=== PATIENT | male | born 1990 | race Caucasian/White ===

== ENCOUNTER 2017-05-30 09:03 | Emergency (ER) | payer SELFPAY ==
[~2017-05-30] VITALS: Ht 188 cm; Wt 100.0 kg
[~2017-05-30 09:03] MED LIST: (None)3.5 GM OS; BACTRIM DS1 TAB PO; COLCHICINE0.6 M2 PO; DOXYCYCL HYC100 M4 PO; FLEXERIL OR; GENTAMICIN SULF5 ML OS; INDOCIN SR75 MG PO; INDOCIN25 MG PO; INDOCIN50 MG/CAP PO; LORTAB 10 PO; LORTAB 10-325 M1 TAB PO; LORTAB 5-325 MG1 TAB PO; LORTAB 5/3255 MG PO; LORTAB 7.5-3251 TAB PO; LORTAB5 PO; MOTRIN800 MG PO; NAPROSYN500 MG PO; NO; NO HOME MEDS; PERCOCET 5/325M1 TAB PO; PREDNISONE10 MG PO; PROBENECID/COLC1 TAB PO; TORADOL OR; TRAMADOL HYDROC50 MG PO; ULTRAM50 M1 PO; ULTRAM50 MG OR; VICOPROFEN OR
[2017-05-30 09:52] LABS: HEMATOCRIT 40.8 % (39.0-50.0); HEMOGLOBIN 13.2 g/dl (14.0-18.0); IMMATURE GRANULOCYTES 0.6 % (0.0-1.0); MEAN CELL VOLUME 81.1 fL CALC (80.0-100.0); MEAN CORPUSCULAR HGB 26.2 pG CALC (26.0-32.0); MEAN CORPUSCULAR HGB CONC 32.4 g/L CALC (32.0-36.0); NEUT# 11.08 thou/uL (1.82-7.42); RED BLOOD COUNT 5.03 mill/uL (4.70-6.10); RED CELL DISTRI WIDTH 13.9 % (11.5-15.5)
[2017-05-30 10:15] LABS: ALBUMIN 4.1 g/dL (3.2-5.0); ALKALINE PHOSPHATASE 72 u/l (38-126); ANION GAP 17 (6-22 (CALC)); BILIRUBIN, TOTAL 0.4 mg/dL (0.0-1.4); BUN 13 mg/dL (9-20); BUN/CREATININE RATIO 15 (12-20 (CALC)); CALCIUM 8.9 mg/dL (8.4-10.2); CARBON DIOXIDE 22 mmol/l (22-30); CHLORIDE 107 mmol/l (95-108); CREATININE 0.9 mg/dL (0.7-1.3); GFR > 60 ML/MIN (>=60 (CALC)); GFR FOR AFR.AMER. > 60 ML/MIN (>=60 (CALC)); GLUCOSE 88 mg/dL (75-110); POTASSIUM 4.1 mmol/l (3.5-5.1); SGOT/AST 25 u/l (17-59); SGPT/ALT 42 u/l (21-72); SODIUM 141 mmol/l (137-146); TOTAL PROTEIN 6.8 g/dL (6.3-8.2)
[2017-05-30] MEDS ORDERED: LORTAB 10-325 M1 TAB PO (13:13)
[2017-05-30] MEDS ORDERED: BACTRIM DS1 TAB PO (13:13)
[2017-05-30] MEDS ORDERED: CEPHALEXIN500 MG PO (13:13)
[2017-05-30 13:21] VITALS: BP 119/68
== END 2017-05-30 13:35 | disposition home or self-care (01) | DRG 603 ==
LOC: ED 09:03
PROVIDERS: Emergency Medicine
PROC: 0H98XZX Drainage of Buttock Skin, External Approach, Diagnostic (ICD-10-PCS; principal; 2017-05-30)
DX: L05.01 Pilonidal cyst with abscess (principal); B95.8 Unspecified staphylococcus as the cause of diseases classified elsewhere; M10.9 Gout, unspecified; F17.210 Nicotine dependence, cigarettes, uncomplicated
CPT/HCPCS: Q9967

== ENCOUNTER 2017-05-31 13:02 | Emergency (ER) | payer SELFPAY ==
[~2017-05-31] VITALS: Ht 188 cm; Wt 130.0 kg
[~2017-05-31 13:02] MED LIST changes: +CEPHALEXIN500 MG PO
[2017-05-31 13:39] VITALS: BP 151/79
== END 2017-05-31 13:45 | disposition home or self-care (01) | DRG 603 ==
LOC: ED 13:02
DX: L05.01 Pilonidal cyst with abscess (principal); F17.210 Nicotine dependence, cigarettes, uncomplicated

== ENCOUNTER 2017-08-02 18:09 | Emergency (ER) | payer SELFPAY ==
[~2017-08-02] VITALS: Ht 188 cm; Wt 100.0 kg
[2017-08-02] MEDS ORDERED: BACTRIM DS1 TAB PO (19:11)
[2017-08-02] MEDS ORDERED: LORTAB 10-325 M1 TAB PO (19:11)
[2017-08-02 19:13] VITALS: BP 177/101
== END 2017-08-02 19:27 | disposition home or self-care (01) | DRG 395 ==
LOC: ED 18:09
PROC: 0D9P3ZZ Drainage of Rectum, Percutaneous Approach (ICD-10-PCS; principal; 2017-08-02)
DX: K61.1 Rectal abscess (principal); M10.9 Gout, unspecified; F17.210 Nicotine dependence, cigarettes, uncomplicated

== ENCOUNTER 2017-10-30 16:19 | Emergency (ER) | payer SELFPAY ==
[~2017-10-30] VITALS: Ht 188 cm; Wt 129.0 kg
[2017-10-30] MEDS ORDERED: COLCHICINE0.6 M2 PO (16:53)
[2017-10-30] MEDS ORDERED: TRAMADOL HYDROC50 MG PO (16:53)
[2017-10-30] MEDS ORDERED: INDOMETHACIN25 MG PO (16:53)
[2017-10-30 16:59] VITALS: BP 140/80
== END 2017-10-30 17:00 | disposition home or self-care (01) | DRG 554 ==
LOC: ED 16:19
DX: M1A.9XX0 Chronic gout, unspecified, without tophus (tophi) (principal); M25.572 Pain in left ankle and joints of left foot

== ENCOUNTER 2017-12-12 11:17 | Emergency (ER) | payer SELFPAY ==
[~2017-12-12] VITALS: Ht 188 cm; Wt 129.6 kg
[~2017-12-12 11:17] MED LIST changes: +INDOMETHACIN25 MG PO
[2017-12-12] MEDS ORDERED: MOTRIN200 MG PO (11:35)
[2017-12-12] MEDS ORDERED: TORADOL PO (12:58)
[2017-12-12] MEDS ORDERED: SEPTRA4001 PO (12:58)
[2017-12-12] MEDS ORDERED: AUGMENTIN500TAB PO (12:58)
[2017-12-12 13:10] VITALS: BP 155/74
== END 2017-12-12 13:10 | disposition home or self-care (01) | DRG 603 ==
LOC: ED 11:17
DX: L05.01 Pilonidal cyst with abscess (principal); L50.9 Urticaria, unspecified

== ENCOUNTER 2018-04-20 22:41 | Emergency (ER) | payer SELFPAY ==
[~2018-04-20] VITALS: Ht 188 cm; Wt 138.0 kg
[~2018-04-20 22:41] MED LIST changes: +AUGMENTIN500TAB PO; +MOTRIN200 MG PO; +SEPTRA4001 PO; +TORADOL PO
--- NOTE | 2018-04-20 23:53 | NUR ---
BREATHING TREATMENT GIVEN USING THE MOUTH PEICE. BREATHING TECH. FOR GOOD DEPOSITION TO THE LUNGS.
[2018-04-21] MEDS ORDERED: PREDNISONE10 MG PO (00:37)
[2018-04-21] MEDS ORDERED: VENTOLIN HFA IN (00:37)
[2018-04-21] MEDS ORDERED: DOXYCYCL HYC100 MG PO (00:37)
[2018-04-21 01:28] VITALS: BP 154/91
== END 2018-04-21 01:00 | disposition home or self-care (01) | DRG 203 ==
LOC: ED 22:41
DX: J45.909 Unspecified asthma, uncomplicated (principal); F17.210 Nicotine dependence, cigarettes, uncomplicated

== ENCOUNTER 2018-10-16 13:02 | Emergency (ER) | payer SELFPAY ==
[~2018-10-16] VITALS: Ht 188 cm; Wt 118.2 kg
[~2018-10-16 13:02] MED LIST changes: +DOXYCYCL HYC100 MG PO; +VENTOLIN HFA IN
[2018-10-16] MEDS ORDERED: OFLOXACIN0.3 % OS (13:36)
[2018-10-16 13:48] VITALS: BP 148/70
== END 2018-10-16 13:48 | disposition home or self-care (01) | DRG 125 ==
LOC: ED 13:02
DX: H10.9 Unspecified conjunctivitis (principal); F17.210 Nicotine dependence, cigarettes, uncomplicated

== ENCOUNTER 2019-04-21 10:40 | Emergency (ER) | payer SELFPAY ==
[~2019-04-21] VITALS: Ht 188 cm; Wt 100.0 kg
[~2019-04-21 10:40] MED LIST changes: +OFLOXACIN0.3 % OS
[2019-04-21] MEDS ORDERED: LORTAB 1010 MG PO (11:58)
[2019-04-21] MEDS ORDERED: CEPHALEXIN500 M1 PO (11:58)
[2019-04-21] MEDS ORDERED: BACTRIM DS1 TAB PO (11:58)
[2019-04-21 12:07] VITALS: BP 147/85
== END 2019-04-21 12:11 | disposition home or self-care (01) | DRG 603 ==
LOC: ED 10:40
PROC: 0H98XZZ Drainage of Buttock Skin, External Approach (ICD-10-PCS; principal; 2019-04-21)
DX: L05.01 Pilonidal cyst with abscess (principal); F17.200 Nicotine dependence, unspecified, uncomplicated

== ENCOUNTER 2019-04-22 12:39 | Emergency (ER) | payer SELFPAY ==
[~2019-04-22] VITALS: Ht 188 cm; Wt 131.0 kg
[~2019-04-22 12:39] MED LIST changes: +CEPHALEXIN500 M1 PO; +LORTAB 1010 MG PO
[2019-04-22 13:10] VITALS: BP 135/77
== END 2019-04-22 13:10 | disposition home or self-care (01) | DRG 951 ==
LOC: ED 12:39
DX: Z48.01 Encounter for change or removal of surgical wound dressing (principal); F17.210 Nicotine dependence, cigarettes, uncomplicated

== ENCOUNTER 2019-05-30 10:05 | Emergency (ER) | payer SELFPAY ==
[~2019-05-30] VITALS: Ht 188 cm; Wt 130.0 kg
[2019-05-30] MEDS ORDERED: AUGMENTIN500TAB PO ×2 (10:19→10:29)
[2019-05-30] MEDS ORDERED: TORADOL PO ×2 (10:19→10:29)
[2019-05-30 10:55] VITALS: BP 146/77
== END 2019-05-30 11:10 | disposition home or self-care (01) | DRG 603 ==
LOC: ED 10:05
DX: L05.91 Pilonidal cyst without abscess (principal); F17.200 Nicotine dependence, unspecified, uncomplicated

== ENCOUNTER 2019-10-17 17:21 | Emergency (ER) | payer SELFPAY ==
[~2019-10-17] VITALS: Ht 188 cm; Wt 136.0 kg
[2019-10-17] MEDS ORDERED: TERBINAFINE250 M1 PO (18:33)
[2019-10-17 19:35] VITALS: BP 170/88
== END 2019-10-17 19:57 | disposition home or self-care (01) | DRG 607 ==
LOC: ED 17:21
DX: L30.3 Infective dermatitis (principal); F17.210 Nicotine dependence, cigarettes, uncomplicated; B95.62 Methicillin resistant Staphylococcus aureus infection as the cause of diseases classified elsewhere
CPT/HCPCS: J2540

== ENCOUNTER 2020-07-31 18:20 | Observation (INO) | payer SELFPAY ==
[~2020-07-31] VITALS: Ht 185.4 cm; Wt 146.0 kg
[~2020-07-31 18:20] MED LIST changes: +TERBINAFINE250 M1 PO
--- NOTE | 2020-07-31 18:22 | NUR ---
PT AMBULATORY TO ROOM WITH STEADY GAIT IN NO DISTRESS. PT DECLINED WC
--- NOTE | 2020-07-31 19:15 | NUR ---
DISCUSSED POC. EXTENDED TEACHING REGARDING TESTING AND ADMISSION TO INCLUDE POSSIBLE TRANSFER. NPO AT PRESENT.
[2020-07-31 19:20] LABS: HEMATOCRIT 41.2 % (39.0-50.0); HEMOGLOBIN 12.5 g/dl (14.0-18.0); IMMATURE GRANULOCYTES 0.9 % (0.0-5.0); MEAN CELL VOLUME 78.3 fL CALC (80.0-100.0); MEAN CORPUSCULAR HGB 23.8 pG CALC (26.0-32.0); MEAN CORPUSCULAR HGB CONC 30.3 g/dL CAL (32.0-36.0); NEUT# 7.83 thou/uL (1.82-7.42); RED BLOOD COUNT 5.26 mill/uL (4.70-6.10); RED CELL DISTRI WIDTH 14.5 % (11.5-15.5)
[2020-07-31 19:31] LABS: ALBUMIN 4.2 g/dL (3.2-5.0); ALKALINE PHOSPHATASE 74 u/l (38-126); ANION GAP 13 (6-22 (CALC)); BILIRUBIN, TOTAL 0.3 mg/dL (0.0-1.4); BUN 13 mg/dL (9-20); BUN/CREATININE RATIO 16 (12-20 (CALC)); CARBON DIOXIDE 26 mmol/l (22-30); CHLORIDE 104 mmol/l (95-108); CREATININE 0.8 mg/dL (0.7-1.3); GFR > 60 ML/MIN (>=60 (CALC)); GFR FOR AFR.AMER. > 60 ML/MIN (>=60 (CALC)); POTASSIUM 3.9 mmol/l (3.5-5.1); SGOT/AST 32 u/l (17-59); SODIUM 139 mmol/l (137-146)
[2020-07-31 19:35] LABS: URINE BILIRUBIN - DIPSTICK NEGATIVE (NEGATIVE); URINE BLOOD DIPSTICK NEGATIVE (NEGATIVE); URINE COLOR YELLOW; URINE GLUCOSE - DIPSTICK NEGATIVE (NEGATIVE); URINE KETONE NEGATIVE (NEGATIVE); URINE LEUK ESTERASE NEGATIVE (NEGATIVE); URINE NITRITE - DIPSTICK NEGATIVE (Negative); URINE PH 5.5 (4.5-8.0); URINE PROTEIN - DIPSTICK NEGATIVE (NEG-TRACE); URINE SPECIFIC GRAVITY >=1.030; URINE UROBILINOGEN - DIPSTICK 0.2 E.U./dL (0.2)
--- NOTE | 2020-07-31 19:35 | NUR ---
NOTED ANISOCORIA L=5 R=3 WITH LEFT [place].
[2020-07-31 19:39] LABS: ACT PARTIAL THROMBO TIME 24.7 SECONDS (20.0-32.5); PROTHROMBIN TIME 9.6 SECONDS (9.0-12.5)
--- NOTE | 2020-07-31 20:20 | NUR ---
AWAITING TEST RESULTS. VSS. NO C/O. NO CHANGE IN EXAM.
--- NOTE | 2020-07-31 21:20 | NUR ---
RETURNED FROM CT. EXAM UNCHANGED. AWAITING RESULTS.
--- NOTE | 2020-07-31 21:59 | NUR ---
CT RESULTS ALL NEGATIVE. ADVISED PT THAT HE WOULD BE ADMITTED. MEAL GIVEN.
--- NOTE | 2020-07-31 23:00 | NUR ---
RESTING QUIETLY AWAITING DISPO. NO CHANGE IN EXAM.
--- NOTE | 2020-08-01 | NUR ---
TOOK DIET WITHOUT DIFFICULTY. VSS.NAD NO CHANGE NOTED.
--- NOTE | 2020-08-01 00:36 | NUR ---
PT REVEALED THAT HE HAS GOUT. MEDICATED FOR LEFT KNEE PAIN.
--- NOTE | 2020-08-01 00:38 | NUR ---
TELEPHONE REPORT RECEIVED FROM Efrem METZGER RN IN ED.
--- NOTE | 2020-08-01 00:46 | NUR ---
Admission Note Report Given to: VIET BILLINGS Transported by: X Wheelchair Stretcher Transported with: X Nurse Transporter X Patent IV O2 X Fireworks Maker Location: ICU X [facility]
--- NOTE | 2020-08-01 00:48 | NUR ---
PT ARRIVES TO UNIT AT 0048 VIA , ACCOMPANIED BY Efrem METZGER RN. ADMITTED INTO ROOM 261. AMBULATORY TO BED.
[2020-08-01 00:50] VITALS: BP 158/100
[2020-08-01 01:05] VITALS: BP 158/100
--- NOTE | 2020-08-01 01:05 | NUR ---
ADMISSION AND PHYSICAL ASSESMENT COMPLETE. PT CURRENTLY DENIES PAIN OR DISCOMFORT. ORDERED IVF'S ADMINISTERED, SEE E-MAR. PT DENIES ANY NEEDS AT THIS TIME. PLAN OF CARE REVIEWED, PT DENIES QUESTIONS, VERBALIZES UNDERSTANDING. ITEMS WITHIN REACH, BED LOCKED IN LOW POSITION W/ BEDRAILS UP X2. CALL SU WITHIN REACH, AGREES TO CALL PRN.
--- NOTE | 2020-08-01 01:23 | NUR ---
PT SET UP FOR SHOWER BY Scout LOVE CNA. CORSET FITTER NOTIFIED.
[2020-08-01 01:25] VITALS: BP 158/100
--- NOTE | 2020-08-01 02:30 | NUR ---
L AC SITE D/C'D D/T BEING POSITIONAL, CATH INTACT. NEW 20G TO R FA INSERTED.
[2020-08-01 04:00] VITALS: BP 137/77
[2020-08-01 07:44] VITALS: BP 126/83
--- NOTE | 2020-08-01 07:44 | NUR ---
PT SITTING IN BED. A&O X3. NO DISTRESS NOTED. NO PHYSICAL NEURO DEFICITS NOTED. PT REPORTS TO BE FEELING BETTER. MRI TO BE DONE. PT REPORTS LT KNEE PAIN. TRACE EDEMA NOTED TO BLE. NO OTHER NEEDS AT THIS TIME. ASSESSMENT COMPLETED. DISCUSSED POC. CALL LIGHT IN REACH. CONTINUE TO MONITOR.
[2020-08-01 09:34] LABS: CHOLESTEROL HDL RATIO 5.3 (<4.4 (CALC))
[2020-08-01 10:40] VITALS: BP 145/76
[2020-08-01] MEDS ORDERED: TRAMADOL HCL50 MG PO (12:35)
[2020-08-01] MEDS ORDERED: BACTRIM DS1 TAB PO (12:35)
[2020-08-01] MEDS ORDERED: LEXAPRO10 MG PO (12:35)
[2020-08-01] MEDS ORDERED: COLCHICINE0.6 M2 PO (12:35)
--- NOTE | 2020-08-01 13:37 | NUR ---
Discharge instructions given. Patient verbalizes understanding of same. Discharged in stable condition ambulatory to home with . All belongings sent with pt along with scripts and good rx coupons.
== END 2020-08-01 13:35 | disposition home or self-care (01) | DRG 92 ==
LOC: ED 18:20 → ED-I 22:30 → ED 23:33 → MS2 23:34
PROVIDERS: Nurse Practitioner; Student in an Organized Health Care Education/Training Program; ADMIT Internal Medicine; ATTEND Internal Medicine
DX: R29.818 Other symptoms and signs involving the nervous system (principal); L05.01 Pilonidal cyst with abscess; M10.09 Idiopathic gout, multiple sites; F41.9 Anxiety disorder, unspecified; F17.210 Nicotine dependence, cigarettes, uncomplicated; Z20.828 Contact with and (suspected) exposure to other viral communicable diseases
CPT/HCPCS: G0378; Q9967

== ENCOUNTER 2020-09-11 00:15 | Emergency (ER) | payer SELFPAY ==
[~2020-09-11] VITALS: Ht 185.4 cm; Wt 136.3 kg
[~2020-09-11 00:15] MED LIST changes: +LEXAPRO10 MG PO; +TRAMADOL HCL50 MG PO
[2020-09-11 00:22] VITALS: BP 162/81
[2020-09-11] MEDS ORDERED: COLCHICINE0.6 M2 PO (00:36)
[2020-09-11] MEDS ORDERED: MOTRIN800 MG PO (00:36)
== END 2020-09-11 00:50 | disposition home or self-care (01) | DRG 554 ==
LOC: ED 00:15
DX: M10.071 Idiopathic gout, right ankle and foot (principal); F17.210 Nicotine dependence, cigarettes, uncomplicated

== ENCOUNTER 2020-10-07 13:33 | Emergency (ER) | payer OTHER ==
[~2020-10-07] VITALS: Ht 185.4 cm; Wt 115.0 kg
[2020-10-07 14:27] LABS: HEMATOCRIT 41.6 % (39.0-50.0); HEMOGLOBIN 12.8 g/dl (14.0-18.0); MEAN CELL VOLUME 78.9 fL CALC (80.0-100.0); MEAN CORPUSCULAR HGB 24.3 pG CALC (26.0-32.0); MEAN CORPUSCULAR HGB CONC 30.8 g/dL CAL (32.0-36.0); NEUT# 11.56 thou/uL (1.82-7.42); RED BLOOD COUNT 5.27 mill/uL (4.70-6.10); RED CELL DISTRI WIDTH 14.4 % (11.5-15.5)
[2020-10-07 14:45] LABS: ALBUMIN 3.8 g/dL (3.2-5.0); ALKALINE PHOSPHATASE 71 u/l (38-126); ANION GAP 11 (6-22 (CALC)); BILIRUBIN, TOTAL 0.2 mg/dL (0.0-1.4); BUN 14 mg/dL (9-20); BUN/CREATININE RATIO 13 (12-20 (CALC)); CARBON DIOXIDE 28 mmol/l (22-30); CHLORIDE 103 mmol/l (95-108); CREATININE 1.1 mg/dL (0.7-1.3); ETHYL ALCOHOL 0 mg/dl (0-30); GFR > 60 ML/MIN (>=60 (CALC)); GFR FOR AFR.AMER. > 60 ML/MIN (>=60 (CALC)); LIPASE 60 u/l (23-300); POTASSIUM 4.5 mmol/l (3.5-5.1); SGOT/AST 57 u/l (17-59); SODIUM 137 mmol/l (137-146); TOTAL PROTEIN 6.5 g/dL (6.3-8.2)
[2020-10-07 16:01] LABS: URINE BILIRUBIN - DIPSTICK NEGATIVE (NEGATIVE); URINE BLOOD DIPSTICK TRACE-INTACT (NEGATIVE); URINE CLARITY CLEAR; URINE COLOR YELLOW; URINE GLUCOSE - DIPSTICK NEGATIVE (NEGATIVE); URINE KETONE NEGATIVE (NEGATIVE); URINE LEUK ESTERASE NEGATIVE (Negative); URINE NITRITE - DIPSTICK NEGATIVE (Negative); URINE PROTEIN - DIPSTICK TRACE mg/dL (NEG-TRACE); URINE SPECIFIC GRAVITY 1.025; URINE UROBILINOGEN - DIPSTICK 0.2 E.U./dL (0.2)
[2020-10-07 17:23] VITALS: BP 146/76
== END 2020-10-07 16:35 | DRG 536 ==
LOC: ED 13:33
DX: S32.401A Unspecified fracture of right acetabulum, initial encounter for closed fracture (principal); S01.81XA Laceration without foreign body of other part of head, initial encounter; T14.8XXA Other injury of unspecified body region, initial encounter; V43.52XA Car driver injured in collision with other type car in traffic accident, initial encounter; F17.200 Nicotine dependence, unspecified, uncomplicated
CPT/HCPCS: Q9967

== ENCOUNTER 2022-07-01 11:44 | Emergency (ER) | payer OTHER ==
[~2022-07-01] VITALS: Ht 188 cm; Wt 120.4 kg
[~2022-07-01 11:44] MED LIST changes: +ALLOPURINOL100 MG PO; +LORTAB 7.57.5 MG PO; +METOPROL TAR25 M1 PO; +ONDANSETRON4 MG PO; +TAMSULOSIN0.4 MG PO
[2022-07-01 11:53] VITALS: BP 136/84
[2022-07-01] MEDS ORDERED: OFLOXACIN0.3 % OS (12:48)
[2022-07-01 12:55] VITALS: BP 136/84
== END 2022-07-01 13:02 | disposition home or self-care (01) | DRG 125 ==
LOC: ED 11:44
DX: S05.02XA Injury of conjunctiva and corneal abrasion without foreign body, left eye, initial encounter (principal); F17.210 Nicotine dependence, cigarettes, uncomplicated; X58.XXXA Exposure to other specified factors, initial encounter

== ENCOUNTER 2022-12-18 11:03 | Emergency (ER) | payer OTHER ==
[~2022-12-18] VITALS: Ht 185.4 cm; Wt 122.2 kg
[2022-12-18 11:16] VITALS: BP 151/104
[2022-12-18] MEDS ORDERED: MELOXICAM7.5 MG PO (11:24)
[2022-12-18 11:30] VITALS: BP 151/105
[2022-12-18 11:45] VITALS: BP 116/64
[2022-12-18] MEDS ORDERED: PREDNISONE50 MG PO (11:51)
[2022-12-18 12:00] VITALS: BP 116/64; BP 156/105
== END 2022-12-18 12:04 | disposition home or self-care (01) | DRG 556 ==
LOC: ED 11:03
DX: M25.521 Pain in right elbow (principal)

== ENCOUNTER 2023-03-09 12:24 | Emergency (ER) | payer OTHER ==
[~2023-03-09] VITALS: Ht 185.4 cm; Wt 102.0 kg
[~2023-03-09 12:24] MED LIST changes: +MELOXICAM7.5 MG PO; +PREDNISONE50 MG PO
[2023-03-09 12:38] VITALS: BP 147/91
[2023-03-09] MEDS ORDERED: INDOMETHACIN50 MG PO (12:45)
[2023-03-09] MEDS ORDERED: MEDDOSEPAK PO (12:45)
[2023-03-09 13:00] VITALS: BP 132/82
[2023-03-09 13:15] VITALS: BP 132/82
== END 2023-03-09 13:19 | disposition home or self-care (01) | DRG 554 ==
LOC: ED 12:24
DX: M10.062 Idiopathic gout, left knee (principal); F17.210 Nicotine dependence, cigarettes, uncomplicated

== ENCOUNTER 2023-04-08 00:11 | Emergency (ER) | payer OTHER ==
[~2023-04-08] VITALS: Ht 185.4 cm; Wt 255.0 kg
[~2023-04-08 00:11] MED LIST changes: +INDOMETHACIN50 MG PO; +MEDDOSEPAK PO
[2023-04-08 00:32] VITALS: BP 132/75
[2023-04-08] MEDS ORDERED: PREDNISONE50 MG PO (00:41)
[2023-04-08] MEDS ORDERED: INDOMETHACIN75 MG PO (00:41)
[2023-04-08 00:45] VITALS: BP 130/73
[2023-04-08 01:00] VITALS: BP 127/83
[2023-04-08 01:04] VITALS: BP 127/83
== END 2023-04-08 01:16 | disposition home or self-care (01) | DRG 554 ==
LOC: ED 00:11
DX: M10.061 Idiopathic gout, right knee (principal); F17.200 Nicotine dependence, unspecified, uncomplicated

== ENCOUNTER 2023-06-02 11:54 | Emergency (ER) | payer OTHER ==
[~2023-06-02] VITALS: Ht 185.4 cm; Wt 113.0 kg
[~2023-06-02 11:54] MED LIST changes: +INDOMETHACIN75 MG PO
[2023-06-02 12:01] VITALS: BP 146/87
[2023-06-02] MEDS ORDERED: MOUNJARO5 MG (12:13)
[2023-06-02] MEDS ORDERED: PREDNISONE10 MG PO (12:22)
[2023-06-02 12:25] VITALS: BP 146/87
== END 2023-06-02 12:38 | disposition home or self-care (01) | DRG 556 ==
LOC: ED 11:54
DX: M25.521 Pain in right elbow (principal); F17.210 Nicotine dependence, cigarettes, uncomplicated; Z87.39 Personal history of other diseases of the musculoskeletal system and connective tissue

== ENCOUNTER 2023-12-11 10:15 | Emergency (ER) | payer OTHER ==
[~2023-12-11] VITALS: Ht 185.4 cm; Wt 97.0 kg
[~2023-12-11 10:15] MED LIST changes: +MOUNJARO5 MG
[2023-12-11 10:32] VITALS: BP 126/73
[2023-12-11 11:00] VITALS: BP 136/85
[2023-12-11] MEDS ORDERED: PREDNISONE50 MG PO (11:20)
[2023-12-11] MEDS ORDERED: NABUMETONE750 MG PO (11:20)
[2023-12-11 11:29] VITALS: BP 136/85
== END 2023-12-11 11:59 | disposition home or self-care (01) | DRG 556 ==
LOC: ED 10:15
DX: M25.561 Pain in right knee (principal); F17.210 Nicotine dependence, cigarettes, uncomplicated